=== PATIENT | male | born 1985 | race Caucasian/White ===

== ENCOUNTER 2024-01-29 09:39 | Inpatient (IN) | payer OTHER ==
[~2024-01-29] VITALS: Ht 167.6 cm; Wt 79.8 kg
--- NOTE | 2024-01-29 09:40 | NUR ---
[id number] FROM HOME FOR ALLERGIC RXN, LOW BP AND SOB AFTER INSECT BITES. EMS ADMIN 0.5 EPI IM, 50 BENADRYL AND 500 ML NS. PLACED IN BED, AAOX4, BREATHING EVEN AND UNLABORED SATURATING AT 97% NRM 15LIT.
[2024-01-29] MEDS: IV NS 0.9% 1,000 ML BAG IV ONE (09:45)
[2024-01-29] MEDS: IV LR 1000 ML 1,000 ML BAG IV ONE (09:45)
[2024-01-29] MEDS ORDERED: IPRATROPIUM NEB FS 0.5 MG/2.5 ML AMPUL.NEB ONE (09:52)
[2024-01-29] MEDS ORDERED: ALBUTEROL FS 2.5 MG/3 ML VIAL.NEB ONE (09:52)
[2024-01-29 09:53] VITALS: O2SAT 99
[2024-01-29] MEDS: IPRATROPIUM NEB FS 0.5 MG/2.5 ML AMPUL.NEB NEB ONE (09:54)
[2024-01-29] MEDS: ALBUTEROL FS 2.5 MG/3 ML VIAL.NEB NEB ONE (09:54)
[2024-01-29] MEDS ORDERED: diphenhydrAMINE HCL 50 MG/ML VIAL ONE (09:54)
[2024-01-29] MEDS ORDERED: FAMOTIDINE/PF INJ 20 MG/2 ML VIAL IV ONE (09:54)
[2024-01-29] MEDS ORDERED: EPINEPHRINE (1:1000) 1 MG/ML AMPUL ONE (09:54)
[2024-01-29] MEDS ORDERED: methylPREDNISolone SOD SUCC 125 MG/2ML VIAL ONE (09:54)
[2024-01-29] MEDS: EPINEPHRINE (1:1000) 1 MG/ML AMPUL SUBCUT ONE (09:58)
[2024-01-29] MEDS: methylPREDNISolone SOD SUCC 125 MG/2ML VIAL IV ONE (09:59)
--- NOTE | 2024-01-29 10:00 | NUR ---
BLOOD DRAWN AND SENT TO LAB
[2024-01-29 10:02] VITALS: O2SAT 100
[2024-01-29] MEDS: diphenhydrAMINE HCL 50 MG/ML VIAL IV ONE (10:03)
[2024-01-29 10:04] LABS: HEMATOCRIT 50 % (39-51); LYMPHOCYTES % (AUTO) 31.4 % (20.0-44.0); MEAN CORPUSCULAR HEMOGLOBIN 34 PG (26.0-33.0); MEAN CORPUSCULAR HGB CONC 34 g/dl (31.0-36.0); MEAN CORPUSCULAR VOLUME 100 fL (80-96); NEUTROPHILS % (AUTO) 65.2 % (43.0-81.0); PLATELET COUNT (AUTO) 448 K/uL (150-450); RED BLOOD CELL COUNT(AUTO) 4.98 MIL/uL (4.5-6.0); RED CELL DISTRIBUTION WIDTH 12.7 % (11.5-15.0); WHITE BLOOD COUNT (AUTO) 8.8 K/uL (4.3-11.0)
[2024-01-29 10:05] LABS: BASOPHILS % (AUTO) 0.3 % (0.0-2.0); EOSINOPHILS % (AUTO) 0.4 % (0.0-6.0); LYMPHOCYTES # (AUTO) 2.8 K/uL (0.8-4.8); MONOCYTES # (AUTO) 0.2 K/uL (0.1-1.30); MONOCYTES % (AUTO) 2.7 % (2.0-12.0); NEUTROPHILS # (AUTO) 5.7 K/uL (1.8-8.9)
[2024-01-29] MEDS: FAMOTIDINE/PF INJ 20 MG/2 ML VIAL IV ONE (10:05)
[2024-01-29 10:12] LABS: CALCIUM, SERUM 9.2 mg/dL (8.5-10.1); CREATININE 1.2 mg/dL (0.6-1.3); POTASSIUM 3.6 mmol/L (3.5-5.1)
--- NOTE | 2024-01-29 10:23 | NUR ---
move sheet submitted
--- NOTE | 2024-01-29 10:30 | NUR ---
contacted nurse sup for bed assignment
[2024-01-29] MEDS ORDERED: MAG HYDROX/AL HYDROX/SIMETH 30 ML UDC PO PRN (11:00)
[2024-01-29] MEDS ORDERED: ACETAMINOPHEN 325 MG TABLET PO PRN (11:00)
[2024-01-29] MEDS ORDERED: Z GUARD REMEDY 4 OZ OINT TP PRN (11:00)
[2024-01-29] MEDS ORDERED: MAGNESIUM HYDROXIDE 30 ML UDC PO PRN (11:00)
[2024-01-29] MEDS ORDERED: IPRATROPIUM NEB FS 0.5 MG/2.5 ML AMPUL.NEB NEB PRN (11:00)
[2024-01-29] MEDS ORDERED: ZOLPIDEM TARTRATE 5 MG TABLET PO PRN (11:00)
[2024-01-29] MEDS ORDERED: ALBUTEROL FS 2.5 MG/3 ML VIAL.NEB NEB PRN (11:00)
--- NOTE | 2024-01-29 11:50 | NUR ---
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
--- NOTE | 2024-01-29 11:50 | NUR ---
REPORT GIVEN TO [facility] ROOM 112-1 FOR [place]
--- NOTE | 2024-01-29 11:59 | NUR ---
PATIENT TRANSFERED AND ADMITTED PER [employer] [employer]
--- NOTE | 2024-01-29 12:00 | NUR ---
RN NOTE Pt brought into unit by ER. Pt on RA tolerating well with no sign or symptoms of respiratory distress. AxO4. No self report of pain. Pt reported some nausea. Gave pt fluids and snacks. Will reevaluate. Skin intact. No redness or swelling on head where wasp sting occurred, resolved in ED. Pt on tele monitor with no signs or symptoms of cardiac distress. Tele reading SR 63bpm. LAC and R AC 18G IV patent. belongings list completed by DONI Freeman. Pt requested that his wallet with $420 stay with him he refused for it to be placed in a locker. Noted on belongings sheet. Pt is ambulatory. Call light within reach. Safety protocol and careplan in place.
[2024-01-29] MEDS: ONDANSETRON HCL/PF 4 MG/2 ML VIAL IVP PRN (12:34)
[2024-01-29 13:13] VITALS: BP 126/87; TEMP 98.2; O2SAT 97
[2024-01-29] MEDS: IV NS 0.9% 1,000 ML IV PRN (14:08)
[2024-01-29 16:00] VITALS: BP 118/71; TEMP 98.6; O2SAT 97
[2024-01-29] MEDS: methylPREDNISolone SOD SUCC 40 MG/ML VIAL IV SCH (16:33)
--- NOTE | 2024-01-29 18:59 | NUR ---
RN CLOSING NOTE Bedside report given to DIONICIO Gonzalez. Pt on RA tolerating well with no sign or symptoms of respiratory distress. AxO4. No self report of pain. Skin intact. No redness or swelling on head where wasp sting occurred, resolved in ED. Pt on tele monitor with no signs or symptoms of cardiac distress. Tele reading SR 68bpm. LAC and R AC 18G IV patent with NS runing as ordered. Pt is ambulatory. Call light within reach. Safety protocol and careplan in place.
[2024-01-29 20:00] VITALS: BP 114/73; TEMP 99; O2SAT 94
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
[2024-01-30] VITALS: BP 112/66; TEMP 98.4; O2SAT 94
[2024-01-30 04:00] VITALS: BP 108/65; TEMP 98.6; O2SAT 97
[2024-01-30 05:49] LABS: HEMATOCRIT 38 % (39-51); HEMOGLOBIN 12.9 g/dL (13.5-17.5); LYMPHOCYTES # (AUTO) 0.7 K/uL (0.8-4.8); LYMPHOCYTES % (AUTO) 5.7 % (20.0-44.0); MEAN CORPUSCULAR HEMOGLOBIN 34 PG (26.0-33.0); MEAN CORPUSCULAR HGB CONC 34 g/dl (31.0-36.0); MEAN CORPUSCULAR VOLUME 100 fL (80-96); MONOCYTES # (AUTO) 0.2 K/uL (0.1-1.30); MONOCYTES % (AUTO) 1.9 % (2.0-12.0); NEUTROPHILS # (AUTO) 11.2 K/uL (1.8-8.9); NEUTROPHILS % (AUTO) 92.4 % (43.0-81.0); PLATELET COUNT (AUTO) 323 K/uL (150-450); RED BLOOD CELL COUNT(AUTO) 3.79 MIL/uL (4.5-6.0); RED CELL DISTRIBUTION WIDTH 12.6 % (11.5-15.0); WHITE BLOOD COUNT (AUTO) 12.2 K/uL (4.3-11.0)
[2024-01-30 06:08] LABS: CALCIUM, SERUM 8.2 mg/dL (8.5-10.1); CREATININE 0.8 mg/dL (0.6-1.3); MAGNESIUM 1.7 mg/dL (1.8-2.4); PHOSPHORUS 3.4 mg/dL (2.5-4.9); POTASSIUM 4.2 mmol/L (3.5-5.1)
--- NOTE | 2024-01-30 06:55 | NUR ---
FORMING PRESS OPERATOR NOTE PT IN BED AWAKE. NO DISTRESS OR DISCOMFORT NOTED. NO S/S OF PAIN NOTED. SR, IVF NS INFUSING AT 100 ML/HR, NO S/S OF INFILTRATION NOTED. ALL NEEDS ATTENDED. SIDE RAILS UP X 2 AND CALL LIGHT WITHIN REACH. WILL ENDORSE TO DAY SHIFT NURSE FOR CONTINUE TO CARE.
--- NOTE | 2024-01-30 07:25 | NUR ---
BIOLOGY MANAGER OPENING NOTES Received pt awake in bed. AOX4 with no complaints of pain or discomfort at this time. Pt is on room air and tolerating it well. IV access on RAC and LAC 18G patent and intact running NS @ 110cc/hr. HOB elevated to pts comfort. Siderails up at all times x3. Bed locked and at its lowest height for safety. Call light within reach. Care is ongoing.
[2024-01-30 08:00] VITALS: BP 103/62; TEMP 97.8; O2SAT 97
[2024-01-30] MEDS ORDERED: FAMOTIDINE/PF INJ 20 MG/2 ML VIAL IV SCH (09:00)
[2024-01-30] MEDS: MAGNESIUM OXIDE 400 MG TABLET PO ONE (09:39)
[2024-01-30] MEDS: FAMOTIDINE (20 MG) 20 MG TABLET PO SCH (09:39)
[2024-01-30 12:00] VITALS: BP 109/73; TEMP 97.6; O2SAT 95
[2024-01-30] MEDS ORDERED: FAMO20TA80 PO (13:56)
[2024-01-30] MEDS ORDERED: PRED20TA PO (13:56)
--- NOTE | 2024-01-30 15:59 | NUR ---
WAX BALL MOLDER NOTES Patient cleared for discharge. Discharge paperwork and belongings list signed. Educated patient on diagnosis and medications that were prescribed. Patient verbalized understanding. IV acces taken out. Escorted patient outside to the lobby where his friend Luca picked him up.
== END 2024-01-30 21:14 | disposition home or self-care (01) | DRG 917 ==
LOC: ER 09:41 → TELE-TD 11:59 → TELE1 19:34
PROVIDERS: ADMIT Nurse Practitioner Acute Care; ATTEND Nurse Practitioner Acute Care
DX: T63.461A Toxic effect of venom of wasps, accidental (unintentional), initial encounter (principal); J96.01 Acute respiratory failure with hypoxia; T78.2XXA Anaphylactic shock, unspecified, initial encounter; Y92.008 Other place in unspecified non-institutional (private) residence as the place of occurrence of the external cause; F17.210 Nicotine dependence, cigarettes, uncomplicated; R79.89 Other specified abnormal findings of blood chemistry; Z71.6 Tobacco abuse counseling
CPT/HCPCS: 36415; 71045-TC; 80048-TC; 83735-TC; 84100-TC; 85025-TC; A4223; G0378; J0171; J1200; J2405; J2919; J3490; J7030; J7120